=== PATIENT | female | born 1970 | race Caucasian/White ===

== ENCOUNTER 2019-09-22 11:39 | Inpatient (IN) | payer OTHER, MEDICARE ==
[~2019-09-22] VITALS: Ht 175.3 cm; Wt 91.5 kg
[2019-09-22] MEDS ORDERED: BACL20TA PO (12:51)
[2019-09-22] MEDS ORDERED: FAMC500T4 PO (12:51)
[2019-09-22] MEDS ORDERED: DIME240C PO (12:51)
[2019-09-22] MEDS ORDERED: LEVO125T PO (12:51)
[2019-09-22] MEDS ORDERED: BACL-19 PO (12:51)
[2019-09-22] MEDS ORDERED: TRAZ-175 PO (12:51)
--- NOTE | 2019-09-22 12:56 | NUR ---
Ultrasound at bedside [facility] piv removed (painful). Replaced with new piv
[2019-09-22 12:59] LABS: BASOPHILS # (AUTO) 0.01 x10^3/uL (0-0.1); BASOPHILS % (AUTO) 0 % (0-1); EOSINOPHILS # (AUTO) 0.01 x10^3/uL (0-0.4); EOSINOPHILS % (AUTO) 0 % (1-7); LYMPHOCYTES # (AUTO) 0.58 x10^3/uL (1-3.4); LYMPHOCYTES % (AUTO) 10 % (22-44); MD NO; MEAN CORPUSCULAR HEMOGLOBIN 28.8 pg (27.0-34.8); MEAN CORPUSCULAR HGB CONC 32.8 g/dL (32.4-35.8); MEAN CORPUSCULAR VOLUME 87.6 fL (80-100); MEAN PLATELET VOLUME 7.4 fL (7.4-10.4); MONOCYTES # (AUTO) 0.34 x10^3/uL (0.2-0.8); MONOCYTES % (AUTO) 6 % (2-9); NEUTROPHILS # (AUTO) 5.05 x10^3/uL (1.8-6.8); NEUTROPHILS % (AUTO) 84 % (42-75); PLATELET COUNT 252 x10^3/uL (130-400); RED BLOOD COUNT 4.38 x10^6/uL (3.82-5.3); RED CELL DISTRIBUTION WIDTH 12.7 % (9.6-15.2)
[2019-09-22] MEDS ORDERED: SODIUM CHLORIDE FLUSH 10ML SYR IVF ONE (13:00)
[2019-09-22] MEDS ORDERED: SODIUM CHLORIDE 0.9% 1,000ML IVBOLUS ONE (13:00)
[2019-09-22] MEDS ORDERED: ONDANSETRON 2MG/ML, 2ML IVPush ONE (13:00)
[2019-09-22 13:13] LABS: ALBUMIN 3.5 g/dL (3.4-5.0); ANION GAP 5 mmol/L (5-15); CHLORIDE 110 mmol/L (98-107); CREATININE 0.63 mg/dL (0.55-1.02)
[2019-09-22 13:17] LABS: ALANINE AMINOTRANSFERASE 34 U/L (12-78); ALKALINE PHOSPHATASE 63 U/L (45-117); BILIRUBIN,TOTAL 0.4 mg/dL (0.2-1.0); TOTAL PROTEIN 6.7 g/dL (6.4-8.2)
--- NOTE | 2019-09-22 14:14 | NUR ---
UA SENT REMAINS PAIN FREE 1L NS COMPLETE VSS ON NIBP/POX pROVIDER TO BEDSIDE- TO HAVE MRCP THEN POC TO BE ESTABLISHED
[2019-09-22 14:27] LABS: MICROSCOPIC NOT IND
[2019-09-22] MEDS ORDERED: LORazepam 2 MG/ML, 1ML IVPush ONE (14:30)
[2019-09-22] MEDS ORDERED: LORazepam 2 MG/ML, 1ML ONE (14:43)
--- NOTE | 2019-09-22 14:49 | NUR ---
break note: PT. WAS MEDICATED FOR CLAUSTROPHOBIA AND TAKEN TO MRI AT THIS TIME.
--- NOTE | 2019-09-22 16:50 | NUR ---
RAPID COVID TEST PERFORMED-WALKED TO LAB
[2019-09-22] MEDS ORDERED: MELATONIN 5 MG TABLET PO PRN (17:00)
[2019-09-22] MEDS ORDERED: ACETAMINOPHEN 325 MG TABLET PO PRN ×2 (17:00→18:00)
[2019-09-22] MEDS ORDERED: KETOROLAC 30 MG/1 ML IV PRN (17:00)
[2019-09-22] MEDS ORDERED: hydrALAzine 20 MG/ML, 1ML IV PRN ×2 (17:00→18:00)
[2019-09-22] MEDS ORDERED: PROMETHAZINE 25 MG/ML, 1ML IM PRN (17:00)
[2019-09-22] MEDS ORDERED: ONDANSETRON ODT 4 MG PO PRN (17:00)
--- NOTE | 2019-09-22 17:00 | NUR ---
TO OR FOR CHOLECYSTECTOMY
--- NOTE | 2019-09-22 17:19 | NUR ---
REPORT TO [facility] CAMEJO
[2019-09-22] MEDS ORDERED: BUPIVACAINE/EPI 0.5% 1:200K ONE (17:28)
[2019-09-22] MEDS ORDERED: FENTANYL PF 100 MCG/2ML ONE ×3 (17:28→18:22)
[2019-09-22] MEDS ORDERED: MIDAZOLAM 1 MG/ML, 2ML ONE (17:29)
[2019-09-22] MEDS ORDERED: LIDOCAINE-MPF 2% ,5ML ONE (17:30)
[2019-09-22] MEDS ORDERED: CEFOTETAN PMX 2GM/50ML 50 ML ONE (17:44)
[2019-09-22] MEDS ORDERED: KETOROLAC 30 MG/1 ML ONE (17:47)
[2019-09-22] MEDS ORDERED: SUGAMMADEX 200 MG/2 ML IVPush ONE (17:51)
[2019-09-22] MEDS ORDERED: SUCCINYLCHOLINE 20 MG/ML, 10ML ONE (17:55)
[2019-09-22] MEDS ORDERED: ROCURONIUM 10MG/ML,5ML ONE (17:55)
[2019-09-22] MEDS ORDERED: ONDANSETRON 2MG/ML, 2ML ONE (17:55)
[2019-09-22] MEDS ORDERED: DEXAMETHASONE 4 MG/ML, 1ML ONE (17:55)
[2019-09-22] MEDS ORDERED: PROPOFOL 10 MG/ML, 20ML ONE (17:55)
[2019-09-22] MEDS ORDERED: MEPERIDINE/PF 25MG/0.5ML IVPush PRN (18:00)
[2019-09-22] MEDS ORDERED: PROMETHAZINE 25 MG/ML, 1ML IVPush PRN (18:00)
[2019-09-22] MEDS ORDERED: LABETALOL 5MG/ML, 20ML IV PRN (18:00)
[2019-09-22] MEDS ORDERED: OXYcodone 5 MG/5 ML ORAL.SOL UDC PO PRN (18:00)
[2019-09-22] MEDS ORDERED: ONDANSETRON 2MG/ML, 2ML IVPush PRN (18:00)
[2019-09-22] MEDS ORDERED: EPHEDRINE 50 MG/ML, 1ML IVPush PRN (18:00)
[2019-09-22] MEDS ORDERED: FENTANYL PF 100 MCG/2ML IV PRN (18:00)
[2019-09-22] MEDS ORDERED: HYDROmorphone 1 MG/ML, 1ML INJ IVPush PRN (18:00)
[2019-09-22] MEDS ORDERED: ACETAMINOPHEN 650 MG/20.3 ML UDC ONE (18:22)
[2019-09-22] MEDS ORDERED: OXYcodone 5 MG/5 ML ORAL.SOL UDC ONE (18:23)
[2019-09-22] MEDS ORDERED: MEPERIDINE/PF 25MG/ML,1ML ONE (18:25)
[2019-09-22 19:45] VITALS: BP 127/78
[2019-09-22] MEDS: CEFTRIAXONE PMX 2GM/50ML 50 ML IV SCH (20:14)
[2019-09-22] MEDS: TEMPLATE NON-FORMULARY MED. (Dimethyl Fumarate (Tecfidera) 240 MG) HOMEMEDPO SCH (20:38)
[2019-09-22] MEDS: BACLOFEN 10 MG TABLET PO SCH (20:38)
[2019-09-22] MEDS: TRAZODONE 100MG TABLET PO SCH (20:38)
[2019-09-22] MEDS ORDERED: FAMCICLOVIR 500 MG TABLET PO SCH (21:00)
[2019-09-22 21:02] VITALS: BP 138/87
[2019-09-22] MEDS: METRONIDAZOLE PMX 500MG/100ML 100 ML IV SCH (21:11)
[2019-09-22] MEDS: MORPHINE SULFATE 4 MG/ML, 1ML IVPush PRN ×2 (21:22→23:32)
[2019-09-22] MEDS: LACTATED RINGERS 1,000 ML IV SCH (23:32)
[2019-09-23 00:06] VITALS: BP 131/78
[2019-09-23] MEDS: MORPHINE SULFATE 4 MG/ML, 1ML IVPush PRN ×7 (02:32→23:24)
[2019-09-23 04:13] VITALS: BP 107/65
[2019-09-23] MEDS: METRONIDAZOLE PMX 500MG/100ML 100 ML IV SCH ×3 (04:33→21:46)
[2019-09-23] MEDS: LEVOTHYROXINE 125 MCG TABLET PO SCH (05:31)
[2019-09-23 06:08] LABS: BASOPHILS % (AUTO) 0 % (0-1); EOSINOPHILS # (AUTO) 0.01 x10^3/uL (0-0.4); EOSINOPHILS % (AUTO) 0 % (1-7); LYMPHOCYTES # (AUTO) 0.31 x10^3/uL (1-3.4); LYMPHOCYTES % (AUTO) 5 % (22-44); MD NO; MEAN CORPUSCULAR HEMOGLOBIN 29.2 pg (27.0-34.8); MEAN CORPUSCULAR HGB CONC 33.6 g/dL (32.4-35.8); MEAN CORPUSCULAR VOLUME 87.2 fL (80-100); MEAN PLATELET VOLUME 8.1 fL (7.4-10.4); MONOCYTES # (AUTO) 0.28 x10^3/uL (0.2-0.8); MONOCYTES % (AUTO) 4 % (2-9); NEUTROPHILS % (AUTO) 91 % (42-75); PLATELET COUNT 263 x10^3/uL (130-400); RED BLOOD COUNT 4.54 x10^6/uL (3.82-5.3); RED CELL DISTRIBUTION WIDTH 12.7 % (9.6-15.2)
[2019-09-23 06:15] LABS: ALANINE AMINOTRANSFERASE 101 U/L (12-78); ALBUMIN 3.3 g/dL (3.4-5.0); ANION GAP 6 mmol/L (5-15); CALCIUM 8.3 mg/dL (8.5-10.1); CHLORIDE 109 mmol/L (98-107)
[2019-09-23 06:20] LABS: ALKALINE PHOSPHATASE 65 U/L (45-117); BILIRUBIN,TOTAL 0.6 mg/dL (0.2-1.0); CREATININE 0.68 mg/dL (0.55-1.02); TOTAL PROTEIN 6.9 g/dL (6.4-8.2)
[2019-09-23 07:06] VITALS: BP 121/70
[2019-09-23] MEDS: TEMPLATE NON-FORMULARY MED. (Dimethyl Fumarate (Tecfidera) 240 MG) HOMEMEDPO SCH ×2 (09:00→18:09)
[2019-09-23] MEDS: LACTATED RINGERS 1,000 ML IV SCH ×2 (10:32→23:25)
[2019-09-23 14:40] VITALS: BP 105/66
[2019-09-23 19:30] VITALS: BP 109/72
[2019-09-23] MEDS: CEFTRIAXONE PMX 2GM/50ML 50 ML IV SCH (20:44)
[2019-09-23] MEDS: TRAZODONE 100MG TABLET PO SCH (20:52)
[2019-09-23] MEDS: BACLOFEN 10 MG TABLET PO SCH ×2 (20:52)
[2019-09-24 00:34] VITALS: BP 122/66
[2019-09-24] MEDS ORDERED: TEMPLATE NON-FORMULARY MED. (Dimethyl Fumarate (Tecfidera) 240 MG) HOMEMEDPO SCH (04:00)
[2019-09-24] MEDS: METRONIDAZOLE PMX 500MG/100ML 100 ML IV SCH (05:01)
[2019-09-24] MEDS: LEVOTHYROXINE 125 MCG TABLET PO SCH (05:01)
[2019-09-24 06:47] VITALS: BP 104/67
[2019-09-24] MEDS: LACTATED RINGERS 1,000 ML IV SCH (09:00)
[2019-09-24] MEDS: BACLOFEN 10 MG TABLET PO SCH (09:00)
[2019-09-24] MEDS ORDERED: HYDR-3240 PO (10:32)
== END 2019-09-24 11:50 | disposition home or self-care (01) | DRG 417 ==
LOC: ED 12:33 → EDIP 15:57 → 4NW 17:40
PROVIDERS: ADMIT Family Medicine; ATTEND Internal Medicine
PROC: 0FT44ZZ Resection of Gallbladder, Percutaneous Endoscopic Approach (ICD-10-PCS; principal; 2019-09-22 17:00)
DX: K80.62 Calculus of gallbladder and bile duct with acute cholecystitis without obstruction (principal); K85.10 Biliary acute pancreatitis without necrosis or infection; E89.0 Postprocedural hypothyroidism; F32.9 Major depressive disorder, single episode, unspecified; G35 Multiple sclerosis; J45.909 Unspecified asthma, uncomplicated; R74.8 Abnormal levels of other serum enzymes; Z80.0 Family history of malignant neoplasm of digestive organs; Z82.49 Family history of ischemic heart disease and other diseases of the circulatory system; Z83.3 Family history of diabetes mellitus; Z87.891 Personal history of nicotine dependence; Z90.711 Acquired absence of uterus with remaining cervical stump; Z90.49 Acquired absence of other specified parts of digestive tract; Z91.040 Latex allergy status; Z88.8 Allergy status to other drugs, medicaments and biological substances; Z91.048 Other nonmedicinal substance allergy status; Z90.89 Acquired absence of other organs; Z90.710 Acquired absence of both cervix and uterus; Z20.828 Contact with and (suspected) exposure to other viral communicable diseases
CPT/HCPCS: 36415; 96360; 99285; J3490; 74181; 76700; 80053; 81003; 83605; 83690; 85025; 87635; 88304; G0378; J0696; J1100; J1885; J2175; J2250; J2405; J2704; J3010; Q0162; J0330; J2060; J2270; J7030; J7120